=== PATIENT | male | born 1985 | race Caucasian/White ===

== ENCOUNTER 2022-06-25 13:17 | Emergency (ER) | payer BC, SELFPAY ==
[2022-06-25 13:35] VITALS: BP 126/83; PULSE 63; RESP 18; TEMP 36.6; O2SAT 100
--- NOTE | 2022-06-25 14:01 | ED.URI ---
HPI - URI/Sore Throat General Chief Complaint: Upper Respiratory Infection Stated Complaint: flu like symptoms Time Seen by Provider: 06/25/22 14:01 Source: patient Mode of arrival: ambulatory Limitations: no limitations History of Present Illness HPI Narrative: 36-year-old male presents with complaint of sinus congestion, nasal congestion, drainage for over 10 days. States he now has chills, body aches, fatigue. Reports that drainage is brown. Is concerned that he has a sinus infection. Patient is requesting an antibiotic. All systems reviewed and negative except as noted above. Related Data Allergies Allergy/AdvReac Type Severity Reaction Status Date / Time No Known Allergies Allergy Verified 06/25/22 13:46 Review of Systems Review of Systems: CONSTITUTIONAL: Denies fever . Reports chills, or sweats. EYES: Denies visual changes, redness, or discharge. ENT: report rhinorrhea, congestion. denies sore throat, or otalgia. CARDIOVASCULAR: Denies chest pain, palpitations, or edema. RESPIRATORY: reports cough. Denies dyspnea. GASTROINTESTINAL: Denies abdominal pain, nausea, vomiting, or diarrhea. GENITOURINARY: Denies dysuria or hematuria. SKIN: Denies rash or itching. MUSCULOSKELETAL: Denies back pain, joint pain, or myalgia. NEUROLOGIC: Denies headache, numbness, or weakness. PSYCHIATRIC: Denies anxiety or depression. All other systems reviewed are negative, except as documented in HPI. PMFSH Comments At time of signature, agree with nursing past medical, surgical, social and family history. There is no relevant family history pertinent to the presenting complaint. Exam Narrative: GENERAL: This is a well-nourished, well-developed patient, in no apparent distress. HEAD: normocephalic, atraumatic. EYES: PERRL. Sclera clear/white. Vision is grossly intact. EARS: External ears normal, auditory canals clear and without drainage, fluid bilateral TMs. NOSE: External nose normal with Prior wet drainage, erythema and swelling to both nares. Bilateral maxillary sinus tenderness. THROAT: Mucous membranes moist, posterior pharynx clear. NECK: Neck supple, non-tender without lymphadenopathy, masses or thyromegaly. CARDIOVASCULAR: Regular rate and rhythm without murmurs, gallops, or rubs. RESPIRATORY: Clear to auscultation. Breath sounds equal bilaterally. No wheezes, rales, or rhonchi. SKIN: warm, Dry, intact with no suspicious lesions or rash, good texture and turgor. NEURO: awake, alert, and oriented to person, place and time. There were no obvious focal neurologic abnormalities. EXTREMITIES: No joint tenderness, effusion, or edema noted. Course Course Level of Care: Express Care Visit Vital Signs Vital signs: Vital Signs Temperature 36.6 C 06/25/22 13:35 Pulse Rate 63 06/25/22 13:35 Respiratory Rate 18 06/25/22 13:35 Blood Pressure 126/83 06/25/22 13:35 Pulse Oximetry 100 06/25/22 13:35 Oxygen Delivery Room Air 06/25/22 13:35 Temperature 36.6 C 06/25/22 13:35 Pulse Rate 63 06/25/22 13:35 Respiratory Rate 18 06/25/22 13:35 Blood Pressure 126/83 06/25/22 13:35 Pulse Oximetry 100 06/25/22 13:35 Oxygen Delivery Room Air 06/25/22 13:35 Reviewed MDM - URI/Sore Throat MDM Narrative Medical decision making narrative: Patient is aware of diagnosis, understands and agrees to treatment plan. Anticipatory guidance given. Patient agrees to follow-up as directed and is aware of reasons to seek care at the emergency department. Portions of this record may have been created with voice recognition software will treat patient for bacterial sinusitis due to duration of symptoms, exam findings. Lab Data Labs: Influenza A Screen Negative Reference Range: Negative Influenza B Screen Negative Reference Range: Negative Discharge Plan Discha
== END 2022-06-25 14:14 | disposition home or self-care (01) ==
PROVIDERS: Emergency Provider Nurse Practitioner Family; PCP Nurse Practitioner Family
DX: J01.90 Acute sinusitis, unspecified (principal)
CPT/HCPCS: 87804; 99203; G0463